=== PATIENT | female | born 1960 | race Caucasian/White ===

== ENCOUNTER 2022-11-24 12:03 | Emergency (ER) | payer SELFPAY ==
[2022-11-24] MEDS ORDERED: Sodium Chloride 0.9% 10 ML Syringe FLUSH PRN (12:15)
[2022-11-24 12:54] LABS: BASOPHILS ABSOLUTE AUTO 0.05 K/mm3 (0.01-0.08); BASOPHILS PERCENT AUTO 0.7 % (0.1-1.2); EOSINOPHILS ABSOLUTE AUTO 0.09 K/mm3 (0.04-0.36); EOSINOPHILS PERCENT AUTO 1.2 (0.7-5.8); HEMATOCRIT 44.4 % (34.1-44.9); HEMOGLOBIN 14.5 gm/dl (11.2-15.7); IMMATURE GRAN ABSOLUTE AUTO 0.02 K/mm3 (0.00-0.10); IMMATURE GRAN PERCENT AUTO 0.3 % (<=1.0); LYMPHOCYTES ABSOLUTE AUTO 1.93 K/mm3 (1.18-3.74); LYMPHOCYTES PERCENT AUTO 25.5 % (19.3-51.7); MEAN CORPUSCULAR HEMOGLOBIN 28.8 pg (25.6-32.2); MEAN CORPUSCULAR HGB CONC 32.7 g/dl (32.2-35.5); MEAN CORPUSCULAR VOLUME 88.3 fl (79.4-94.8); MONOCYTES ABSOLUTE AUTO 0.55 K/mm3 (0.24-0.36); MONOCYTES PERCENT AUTO 7.3 % (4.7-12.5); NEUTROPHILS ABSOLUTE AUTO 4.92 K/mm3 (1.56-6.13); PLATELET COUNT,PLT 234 K/mm3 (182-369); RED BLOOD CELL COUNT 5.03 M/mm3 (3.98-5.22); WHITE BLOOD CELL COUNT,WBC 7.56 K/mm3 (3.98-10.04)
[2022-11-24] MEDS ORDERED: hydrALAZINE 20 MG/ML SDV IVPUSH ONE (13:03)
[2022-11-24] MEDS ORDERED: amLODIPine 10 MG Tab PO ONE (13:04)
[2022-11-24 13:25] LABS: A/G RATIO 1.2 (1-2); ALANINE AMINOTRANSFERASE,ALT 40 U/L (14-59); ALBUMIN 4.4 g/dl (3.4-5.0); ALKALINE PHOSPHATASE 74 U/L (46-116); ANION GAP 14.8 (5-15); ASPARTATE AMNIOTRANSFERASE,AST 33 U/L (15-37); BILIRUBIN TOTAL 0.4 mg/dL (0.2-1.0); BLOOD UREA NITROGEN,BUN 19 mg/dL (7-18); BUN/CREATININE RATIO 21.1 (14-18); CALCIUM 9.6 mg/dL (8.5-10.1); CARBON DIOXIDE,CO2 27 mEq/L (21-32); CHLORIDE,CL 102 mEq/L (98-107); CREATININE 0.9 mg/dL (0.55-1.02); ESTIMATED GFR 73 mL/min (>60); GLUCOSE RANDOM 89 mg/dL (70-99); POTASSIUM,K 3.8 mEq/L (3.5-5.1); PROTEIN TOTAL,TP 8.1 g/dl (6.4-8.2); SODIUM,NA 140 mEq/L (136-145); TROPONIN I HIGH SENSITIVITY 15 pg/mL (<=51)
[2022-11-24] MEDS ORDERED: Labetalol 100 MG/20 ML MDV IVPUSH ONE ×5 (14:31→16:04)
[2022-11-24] MEDS ORDERED: Losartan 25 MG Tab PO ONE ×2 (16:01→17:30)
== END 2022-11-24 17:55 | disposition home or self-care (01) ==
LOC: JD.ED 12:03
DX: I10 Essential (primary) hypertension (principal); Z79.899 Other long term (current) drug therapy
CPT/HCPCS: 36415; 80053; 84443; 84484; 85025; 93005; 96374; 96375; 96376; 99283; A9270; J0360; J3490